=== PATIENT | female | born 1990 | race Caucasian/White ===

== ENCOUNTER 2016-03-28 20:02 | Emergency (ER) | payer MEDICAID, OTHER ==
[~2016-03-28] VITALS: Ht 170.2 cm; Wt 77.0 kg
[~2016-03-28 20:02] MED LIST: PREN1TAB52 PO
[2016-03-28] MEDS ORDERED: KETOROLAC TROMETHAMINE 60 MG/2 ML VIAL IM ONE (21:30)
[2016-03-28 22:00] VITALS: BP 120/78
== END 2016-03-28 22:37 | disposition home or self-care (01) ==
LOC: EMS 20:04
DX: M62.830 Muscle spasm of back (principal); M54.6 Pain in thoracic spine
CPT/HCPCS: 81002; 81025; 84703; 96372; 99283; J1885

== ENCOUNTER 2020-06-26 19:59 | Emergency (ER) | payer OTHER ==
[~2020-06-26] VITALS: Ht 175.3 cm; Wt 77.3 kg
[2020-06-26] MEDS ORDERED: ONDANSETRON HCL 4 MG TABLET PO ONE (23:00)
[2020-06-26] MEDS ORDERED: KETOROLAC TROMETHAMINE 60 MG/2 ML VIAL IM ONE (23:00)
[2020-06-26] MEDS ORDERED: CYCLOBENZAPRINE HCL 10 MG TABLET PO ONE (23:00)
[2020-06-27] MEDS ORDERED: HYDROCODONE/ACETAMINOPHEN 5-325 MG TABLET PO ONE
[2020-06-27 00:08] VITALS: BP 116/69
== END 2020-06-27 00:36 | disposition home or self-care (01) ==
LOC: EMS 20:00
DX: M54.5 Low back pain (principal); G89.29 Other chronic pain; V49.9XXA Car occupant (driver) (passenger) injured in unspecified traffic accident, initial encounter; Y93.89 Activity, other specified; Y92.481 Parking lot as the place of occurrence of the external cause; Y99.8 Other external cause status
CPT/HCPCS: 96372; 99285; J1885; Q0162